=== PATIENT | female | born 1975 | race Two or more races ===

== ENCOUNTER 2024-09-08 09:23 | Emergency (ER) | payer SELFPAY ==
[2024-09-08 09:24] VITALS: BMI 30.1
[2024-09-08 09:39] VITALS: BP 111/78; PULSE 95; RESP 16; TEMP 36.6; O2SAT 99
[2024-09-08 09:40] VITALS: BMI 30.4
--- NOTE | 2024-09-08 09:50 | XR_ITS ---
Examination: Lumbar spine 3 views Technique one AP lateral coned lateral lower lumbar spine 3 views Exam date and time: September 08, 2024 1005 hours INDICATIONS: Low back pain beginning today. FINDINGS: Adequate alignment lumbar vertebral bodies No lumbar fracture Advanced disc narrowing L5-S1 No spondylolisthesis IMPRESSION: Advanced degenerative disc disease L5-S1
--- NOTE | 2024-09-08 09:56 | EDNOTE_ITS ---
ED Back Injury Pain RME/HPI General Chief Complaint: Back Pain/Injury Stated Complaint: INJURY TO LEFT HIP/BACK TODAY AT WORK Time Seen by Provider: 09/08/24 09:51 Source: patient Arrival date/time: 09/08/24 09:23 49-year-old female with no known medical history presents to the emergency room with a chief complaint of lumbar back pain x 1 hour. Patient states she was at work lifted a box of close and afterwards began having pain when walking. Patient denies any numbness to the lower extremities or any loss of bowel or bladder function. Mode of arrival: ambulatory Limitations: no limitations Related Data Home Medications ?Medication ?Instructions ?Recorded ?Confirmed quetiapine 300 mg tablet (Seroquel) 300 mg PO HS 12/1812/19/19 Previous Rx's ?Medication ?Instructions ?Recorded ibuprofen 800 mg tablet 800 mg PO Q6H PRN pain 30 da ys #30 12/21/19 tabs cyclobenzaprine 10 mg tablet 10 mg PO TID #14 tabs 12/26 Allergies Allergy/AdvReac Type Severity Reaction Status Date / Time Penicillins Allergy Severe Hives Verified 09/08/24 09:26 Review of Systems Review of Systems Systems Reviewed: All systems reviewed, normal except as documented Constitutional Constitutional: Reports system reviewed and no additional complaints, except as documented, Denies fatigue, Denies fever(s), Denies headache(s) and Denies weakness Eyes Eyes: Reports system reviewed and no additional complaints, except as documented, Denies blurry vision and Denies change in vision ENT Ears, Nose, Mouth, and Throat: Reports system reviewed and no additional complaints, except as documented, Denies otalgia, Denies headache(s), Denies nasal congestion, Denies throat swelling and Denies vertigo Cardiovascular Cardiovascular: Reports system reviewed and no additional complaints, except as documented, Denies chest pain, Denies dyspnea and Denies dyspnea on exertion Respiratory Respiratory: Reports system reviewed and no additional complaints, except as documented, Denies chest congestion, Denies cough, Denies dyspnea, Denies dyspnea on exertion and Denies wheezing Gastrointestinal Gastrointestinal: Reports system reviewed and no additional complaints, except as documented, Denies abdominal pain, Denies cramping, Denies nausea and Denies vomiting Genitourinary Genitourinary: Reports system reviewed and no additional complaints, except as documented Musculoskeletal Musculoskeletal: Reports system reviewed and no additional complaints, except as documented, Reports back pain, Denies numbness, Denies stiffness and Denies tingling Integumentary/Breasts Skin/Breast: Reports system reviewed and no additional complaints, except as documented and Denies wounds Neurologic Neurologic: Reports system reviewed and no additional complaints, except as documented, Denies confusion, Denies headache(s), Denies lack of coordination, Denies numbness, Denies tingling, Denies vertigo and Denies weakness Psychiatric Psychiatric: Reports system reviewed and no additional complaints, except as documented, Denies anxiety, Denies confusion, Denies depression, Denies paranoia, Denies suicidal ideation and Denies tactile hallucinations Endocrine Endocrine: Reports system reviewed and no additional complaints, except as documented and Denies fatigue Hematologic/Lymphatic Hematologic/Lymphatic: Reports system reviewed and no additional complaints, except as documented and Denies lymphadenopathy Allergic/Immunologic Allergic/Immunologic: Reports system reviewed and no additional complaints, except as documented, Denies throat swelling, Denies urticaria and Denies wheezing Past Medical History Past Medical History NEUROLOGIC: Negative Neurological Disorders or Seizures CARDIAC: Negative Cardiac Disorders or Congestive Heart Failure RESPIRATORY: Negative Chronic Obstructive Pulmonary Disease (COPD) or Asthma GENITOURINARY: Negative Genitourinary Disorders or Renal Disease REPRODUCTIVE: Positive Previous Pregnancies MUSCULOSKELETAL: Negative Musculoskeletal Disorders ENDOCRINE: Negative Diabetes Mellitus Type 1 or Diabetes Mellitus Type 2 HEMATOLOGIC: Positive Blood Disorders and Anemia; Negative Sickle Cell Disease PSYCHO/SOCIAL: Positive Anxiety OTHER HISTORY: Negative Blood Transfusions, Blood Transfusion Reaction or Anesthesia Reactions Surgical History SURGICAL: Positive Thyroidectomy, Tubal Ligation and Section Social History SMOKING STATUS: Never smoker ED Exam General Limitations: Present no limitations General appearance: Present alert and in no apparent distress Head Head exam: Present atraumatic Eye Eye exam: Present normal appearance, PERRL and EOMI ENT ENT exam: Present normal exam, normal oropharynx and mucous membranes moist Neck Neck exam: Present normal inspection, full ROM and trachea midline Chest Chest inspection: Present normal inspection and symmetric chest wall rise Respiratory Respiratory exam: Present normal lung sounds bilaterally Cardiovascular Cardiovascular exam: Present regular rate, normal rhythm and normal heart sounds Abdominal Exam Abdominal exam: Present soft and normal bowel sounds Extremities Exam Extremities exam: Present normal inspection and full ROM Back Exam Back exam: Present normal inspection, full ROM and vertebral tenderness Neurological Exam Neurological exam: Present alert, oriented X3 and CN II-XII intact Psychiatric Psychiatric exam: Present normal affect and normal mood Skin Skin exam: Present warm, dry, intact and normal color Course Quality Measures none Orders Category Date Time Status XR lumbar spine 2-3V Stat Exams 09/08/24 09:50 Completed Ketorolac Inj [Toradol Inj] Med 09/08/24 09:50 Discontinued 30 mg IM X1 ONE Vital Signs Vital signs: Vital Signs Temperature 97.8 F 09/08/24 09:39 Pulse Rate 95 09/08/24 09:39 Respiratory Rate 16 09/08/24 09:39 Blood Pressure 111/78 09/08/24 09:39 Pulse Oximetry (%) 99 09/08/24 09:39 Oxygen Delivery Method Room Air 09/08/24 09:39 O2 saturation 99% within normal limits Back Pain / Injury MDM Narrative MDM Narrative:: 49-year-old female with no known medical history presents to the emergency room with a chief complaint of lumbar back pain x 1 hour. Patient states she was at work lifted a box of close and afterwards began having pain when walking. Patient denies any numbness to the lower extremities or any loss of bowel or bladder function. Patient is hemodynamically stable and in no apparent distress. Physical examination shows pain and tenderness to the lumbar area of her spine with palpation X-ray of the lumbar spine was completed and shows degenerative disc disease at L5-S1 level. Patient was discharged and educated to follow-up with her primary care provider and return to the emergency room for any evidence of worsening signs or symptoms Patient data External records reviewed:: [facility] previous records Clinical information provided by:: patient Social determinants that could affect healthcare access:: none Patient has the following chronic illnesses:: No chronic illness How is presenting disease/condition affected by chronic disease/condition?: no chronic disease Evaluation data The following diagnostics were reviewed and interpreted by me:: lab results and radiology exam(s) Lab and/or radiology exams considered but not ordered:: Labs and radiology exams considered in order Interpretation Summary: Lumbar [id number]: Adequate alignment lumbar vertebral bodies No lumbar fracture Advanced disc narrowing L5-S1 No spondylolisthesis IMPRESSION: Advanced degenerative disc disease L5-S1 Medications / Prescriptions Medications or Prescriptions considered but not ordered:: Medication given Medication administrations:: Medication Administration History Discontinued Medications Ketorolac Tromethamine (Ketorolac Inj 60 Mg/2 Ml Vial) 30 mg IM X1 ONE Stop: 09/08/24 09:51 Last Admin: 09/08/24 10:13 Dose: 30 mg Documented By: MAKENNA Comments: 30 MG WASTE Medication given Consultations Consultation(s) initiated? (list below): No Diagnosis Differential diagnosis back pain/injury: lumbar radiculopathy, sciatica, strain of lumbar region, thoracic back pain, discitis and other (Degenerative disc disease) Most likely diagnosis given after review of the tests above:: Degenerative disc disease Admission Indicated Admission indicated?: not indicated Admission Request Was there a request for admission?: No Disposition Plan Disposition Plan: Discharge Discharge Attestation Discharge Attestation: The patient and all family members were given an opportunity to ask questions and understood the discharge instructions. Discharge instructions specifically effects, indications for sooner follow up or return to the emergency department, and the expected course of current diagnosis. Patient condition: Stable Discharge Plan Plan Patient Disposition: HOME (Self Care) Disposition Comment: Stable Prescriptions/Referrals Prescriptions/Med Rec: New cyclobenzaprine 10 mg tablet 10 mg PO TID Qty: 14 0RF No Action quetiapine [Seroquel] 300 mg Tablet 300 mg PO HS ibuprofen 800 mg tablet 800 mg PO Q6H MDD 4 PRN (Reason: pain) 30 Days Qty: 30 1RF Problem List Clinical Impression: Degenerative disc disease at L5-S1 level Patient/Caregiver Discharge Instructions Education Materials: Back Safety: Bending, Anatomy of a Normal Spine, ED Degenerative Disk Disease Additional Instructions: Please follow-up with your primary care provider in the next 24 to 48 hours. X-ray found some degenerative disc disease which is arthritis in the spine. There is no acute fractures or dislocations. Muscle relaxers were sent to your pharmacy to help you with your pain For any evidence of worsening signs or symptoms please return to the emergency room immediately Print Language: [place] Stand Alone Forms: Katty Award Info., Work/School Release, Patient Portal Info Letter YAZ/MARTHA Supervising Physician YAZ/MARTHA Supervising Physician: Dr Valle
[2024-09-08] MEDS: KETOROLAC INJ 60 MG/2 ML VIAL 30 MG IM (10:13)
--- NOTE | 2024-09-08 11:24 | PC.NURSE ---
PT LEFT W/O WORK COMP PAPERS CALLED PT SHE HUNG UP ON NURSE.
== END 2024-09-08 11:08 | disposition home or self-care (01) ==
LOC: SERX 11:02
PROVIDERS: Emergency Provider Emergency Medicine; PCP Nurse Practitioner Family
DX: M51.370 Other intervertebral disc degeneration, lumbosacral region with discogenic back pain only (principal)
CPT/HCPCS: 72100; 96372; 99283; J1885